=== PATIENT | female | born 1940 | race Caucasian/White ===

== ENCOUNTER 2017-04-25 10:09 | Emergency (ER) | payer OTHER ==
[~2017-04-25] VITALS: Ht 160 cm; Wt 42.6 kg
[~2017-04-25 10:09] MED LIST: ASA81 MG PO; CRESTOR5 MG PO; NORVASC5 MG PO; PRILOSEC20 MG PO; TARKA 2/1801 BOTTLE PO; TOPROL XL100 MG PO; ZOCOR20 MG PO
[2017-04-25] MEDS ORDERED: PROTONIX20 MG (11:27)
[2017-04-25] MEDS ORDERED: COZAAR50 MG (11:27)
== END 2017-04-25 15:49 | disposition home or self-care (01) ==
LOC: ER 10:09
DX: B34.9 Viral infection, unspecified (principal); J11.1 Influenza due to unidentified influenza virus with other respiratory manifestations